=== PATIENT | male | born 1970 | race Caucasian/White ===

== ENCOUNTER 2018-04-25 02:15 | Inpatient (IN) | payer OTHER ==
[2018-04-25] MEDS ORDERED: SODIUM CHLORIDE 23.4% 77 MEQ, POTASSIUM CHLORIDE 30 MEQ in DEXTROSE 10% 1,000 ML IV ×3 (02:26→04:36)
[2018-04-25] MEDS ORDERED: SODIUM CHLORIDE 23.4% 77 MEQ in DEXTROSE 10% 1,000 ML IV ×2 (02:26→04:36)
[2018-04-25] MEDS ORDERED: SOD CHLORIDE 0.9% 1,000 ML IV ×2 (02:26→04:36)
[2018-04-25] MEDS ORDERED: SODIUM CHLORIDE 23.4% 77 MEQ, POTASSIUM CHLORIDE 40 MEQ in DEXTROSE 10% 1,000 ML IV ×2 (02:26→04:36)
[2018-04-25] MEDS ORDERED: POTASSIUM CHLORIDE 40 MEQ in SOD CHLORIDE 0.9% 1,000 ML IV ×2 (02:26→04:36)
[2018-04-25] MEDS ORDERED: DEXTROSE 50% 50 ML SYRINGE IV ×6 (02:30→10:30)
[2018-04-25] MEDS ORDERED: CA CHLORIDE 10% 10 ML SYRINGE (02:43)
[2018-04-25] MEDS: SODIUM CHLORIDE 0.9% 1L BAG IV* (02:56)
[2018-04-25] MEDS: CA CHLORIDE 10% 10 ML SYRINGE IV (02:56)
[2018-04-25] MEDS: LACTATED RINGER S IV (03:05)
[2018-04-25 03:21] LABS: LACTIC ACID 2.5 mmol/L (0.5-2.0)
[2018-04-25 03:30] LABS: MODE ROOM AIR; MetHgb Venous 0.3 %; Sample Type Blood venous; Site VENOUS LINE; Venous COHb 0.3 %; Venous Fraction OxyHgb 86.5 %; Venous Total Hemglobin 10.5 g/dl
[2018-04-25] MEDS: VANCOMYCIN 1 GM (PMX) 250 ML IVPB (03:31)
[2018-04-25] MEDS: CEFEPIME 2GM/50 ML (PMX) 50 ML IVPB (03:31)
[2018-04-25 03:52] LABS: ADD MAN DIFF? NO
[2018-04-25 04:00] LABS: ALANINE AMINOTRANSFERASE 97 IU/L (13-69); ALBUMIN 3.2 g/dl (3.3-4.9); ALBUMIN/GLOBULIN RATIO 1.23; ALKALINE PHOSPHATASE 290 IU/L (42-121); ANION GAP 15 (8-16); ASPARTATE AMINO TRANSFERASE 169 IU/L (15-46); BLOOD UREA NITROGEN 53 mg/dl (7-20); CALCIUM 8.6 mg/dl (8.4-10.2); CARBON DIOXIDE 18 mmol/L (21-31); CHLORIDE 97 mmol/L (97-110); CREATININE 3.12 mg/dl (0.61-1.24); POTASSIUM 5.3 mmol/L (3.5-5.1); SODIUM 125 mmol/L (135-144); TOTAL PROTEIN 5.8 g/dl (6.1-8.1)
[2018-04-25 04:07] LABS: GLUCOSE 699 mg/dl (70-220)
[2018-04-25] MEDS ORDERED: POTASSIUM CHLORIDE 30 MEQ in SOD CHLORIDE 0.9% 1,000 ML IV ×2 (04:07→04:36)
[2018-04-25 04:24] LABS: BASOPHILS % 0.3 % (0.0-2.0); EOSINOPHILS % 0.2 % (0.0-7.0); HEMATOCRIT 34.8 % (42.0-52.0); HEMOGLOBIN 10.9 g/dl (14.0-18.0); LYMPHOCYTES # 1.1 10^3/ul (0.8-2.9); LYMPHOCYTES % 11.1 % (15.0-51.0); MEAN CORPUSCULAR HEMOGLOBIN 28.6 pg (29.0-33.0); MEAN CORPUSCULAR HGB CONC 31.3 g/dl (32.0-37.0); MEAN CORPUSCULAR VOLUME 91.3 fl (82.0-101.0); MEAN PLATELET VOLUME 11.4 fl (7.4-10.4); MONOCYTE # 0.8 10^3/ul (0.3-0.9); MONOCYTES % 8.6 % (0.0-11.0); NEUTROPHIL # 7.5 10^3/ul (1.6-7.5); NEUTROPHILS % 78.7 % (39.0-77.0); PLATELET COUNT 226 10^3/UL (140-415); RED BLOOD COUNT 3.81 10^6/ul (4.70-6.10); RED CELL DISTRIBUTION WIDTH 13.6 % (11.5-14.5)
[2018-04-25 04:24] LABS: WHITE BLOOD COUNT 9.5 10^3/ul (4.8-10.8)
[2018-04-25] MEDS ORDERED: INSULIN REGULAR, HUMAN 100 UNIT in SOD CHLORIDE 0.9% 100 ML IV ×2 (04:30→05:00)
[2018-04-25] MEDS: INSULIN REGULAR, HUMAN 100 UNIT in SOD CHLORIDE 0.9% 100 ML IV (04:40)
[2018-04-25] MEDS: POTASSIUM CHLORIDE 30 MEQ in SOD CHLORIDE 0.9% 1,000 ML IV (04:42)
[2018-04-25 04:53] LABS: LACTIC ACID 1.5 mmol/L (0.5-2.0)
[2018-04-25 04:53] LABS: ANION GAP 11 (8-16); BLOOD UREA NITROGEN 51 mg/dl (7-20); CARBON DIOXIDE 17 mmol/L (21-31); CHLORIDE 104 mmol/L (97-110); CREATININE 2.72 mg/dl (0.61-1.24); MAGNESIUM 2.2 mg/dl (1.7-2.5); PHOSPHORUS 4.1 mg/dl (2.5-4.9); POTASSIUM 5.2 mmol/L (3.5-5.1); SODIUM 127 mmol/L (135-144)
[2018-04-25 04:59] LABS: GLUCOSE 575 mg/dl (70-220)
[2018-04-25] MEDS: INSULIN HUMAN REGULAR 100 UNIT in SOD CHLORIDE 0.9% 99 ML IV (05:00)
[2018-04-25] MEDS ORDERED: ACCU-CHEK XX (05:00)
[2018-04-25] MEDS ORDERED: ACETAMINOPHEN 325 MG TAB PO (05:00)
[2018-04-25] MEDS: ONDANSETRON 4 MG INJ IV ×4 (05:21→23:34)
[2018-04-25] MEDS: ACCU-CHEK XX ×4 (06:00→09:30)
[2018-04-25] MEDS: SOD CHLORIDE 0.9% 1,000 ML IV ×3 (06:15→22:29)
[2018-04-25] MEDS ORDERED: ATROPINE 1 MG/10 ML SYRINGE (07:00)
[2018-04-25] MEDS: CEFTRIAXONE 1 GM/50 ML (PMX) 50 ML IVPB (08:04)
[2018-04-25] MEDS: DEXTROSE 50% 50 ML SYRINGE IV ×2 (09:08→09:47)
[2018-04-25] MEDS ORDERED: GLUCAGON 1 MG INJ IM (10:30)
[2018-04-25] MEDS ORDERED: GLUCOSE GEL 15 GRAM TUBE PO ×2 (10:30)
[2018-04-25] MEDS ORDERED: GLUCOSE GEL 15 GRAM TUBE BUCCAL (10:30)
[2018-04-25] MEDS: INSULIN ASPART [NOVOLOG] 3 ML PEN SC ×4 (11:30→20:51)
[2018-04-25] MEDS ORDERED: INSULIN ASPART [NOVOLOG] 3 ML PEN SC ×2 (11:30→17:35)
[2018-04-25 11:55] LABS: ADD MAN DIFF? NO; HAAIG REFLEX REFLEX FILED
[2018-04-25 11:58] LABS: BASOPHILS % 0.2 % (0.0-2.0); EOSINOPHILS # 0.1 10^3/ul (0.0-0.5); EOSINOPHILS % 1.2 % (0.0-7.0); HEMATOCRIT 33.4 % (42.0-52.0); HEMOGLOBIN 10.9 g/dl (14.0-18.0); LYMPHOCYTES # 1.5 10^3/ul (0.8-2.9); LYMPHOCYTES % 16.2 % (15.0-51.0); MEAN CORPUSCULAR HEMOGLOBIN 29.2 pg (29.0-33.0); MEAN CORPUSCULAR HGB CONC 32.6 g/dl (32.0-37.0); MEAN CORPUSCULAR VOLUME 89.5 fl (82.0-101.0); MEAN PLATELET VOLUME 10.4 fl (7.4-10.4); MONOCYTE # 0.9 10^3/ul (0.3-0.9); MONOCYTES % 9.3 % (0.0-11.0); NEUTROPHIL # 6.7 10^3/ul (1.6-7.5); NEUTROPHILS % 72.5 % (39.0-77.0); PLATELET COUNT 214 10^3/UL (140-415); RED BLOOD COUNT 3.73 10^6/ul (4.70-6.10); RED CELL DISTRIBUTION WIDTH 13.2 % (11.5-14.5)
[2018-04-25 11:58] LABS: WHITE BLOOD COUNT 9.3 10^3/ul (4.8-10.8)
[2018-04-25] MEDS: PANTOPRAZOLE 40 MG INJ IV ×2 (12:14→20:49)
[2018-04-25] MEDS: METOCLOPRAMIDE 10 MG INJ IV ×3 (12:14→23:31)
[2018-04-25 12:17] LABS: ANION GAP 13 (8-16); BLOOD UREA NITROGEN 47 mg/dl (7-20); CARBON DIOXIDE 18 mmol/L (21-31); CHLORIDE 112 mmol/L (97-110); CREATININE 2.25 mg/dl (0.61-1.24); GLUCOSE 79 mg/dl (70-220); MAGNESIUM 2.1 mg/dl (1.7-2.5); PHOSPHORUS 3.5 mg/dl (2.5-4.9); POTASSIUM 4.5 mmol/L (3.5-5.1); SODIUM 138 mmol/L (135-144)
[2018-04-25 12:18] LABS: LACTIC ACID 1.4 mmol/L (0.5-2.0)
[2018-04-25 13:21] LABS: HEPATITIS B SURFACE ANTIGEN NEGATIVE (NEGATIVE)
[2018-04-25 13:39] LABS: HEPATITIS B CORE ANTIBODY NEGATIVE (NEGATIVE); HEPATITIS C VIRAL ANTIBODY NEGATIVE (NEGATIVE)
[2018-04-25] MEDS ORDERED: ONDANSETRON 4 MG INJ IV (14:30)
[2018-04-25] MEDS: METHYLPREDNISOLONE 40 MG INJ IV (15:12)
[2018-04-25] MEDS: ENOXAPARIN 30 MG/0.3 ML SYG SC (15:12)
[2018-04-25] MEDS: hydrALAzine 20 MG INJ IV ×2 (18:42→23:34)
[2018-04-25 18:55] LABS: ADD UMIC NO; UR ASCORBIC ACID NEGATIVE (NEGATIVE); UR BILIRUBIN (Dip) NEGATIVE (NEGATIVE); UR BLOOD (Dip) NEGATIVE (NEGATIVE); UR CLARITY CLEAR (CLEAR); UR COLOR YELLOW (YELLOW); UR GLUCOSE (Dip) 3+ mg/dL (NEGATIVE); UR KETONES (Dip) NEGATIVE (NEGATIVE); UR LEUKOCYTE ESTERASE (Dip) NEGATIVE Leu/ul (NEGATIVE); UR NITRITE (Dip) NEGATIVE (NEGATIVE); UR TOTAL PROTEIN (Dip) NEGATIVE (NEGATIVE); UR UROBILINOGEN (Dip) NEGATIVE (NEGATIVE)
[2018-04-25] MEDS: PROMETHAZINE 25 MG SUPP PR (19:05)
[2018-04-25] MEDS: ATORVASTATIN 10 MG TAB PO (20:49)
[2018-04-25] MEDS: MYCOPHENOLATE 250 MG CAP PO (20:49)
[2018-04-25] MEDS: INSULIN GLARGINE [LANTus] (100 UNITS/ML) SYG SC (20:50)
[2018-04-25] MEDS ORDERED: TACROLIMUS 1 MG CAP PO (21:00)
[2018-04-25 21:13] LABS: CHOL/HDL RATIO 2.7 RATIO; HDL CHOLESTEROL 32 mg/dl (27-67); LDL CHOLESTEROL,CALCULATED 34 mg/dl
[2018-04-25 21:15] LABS: CHOLESTEROL 87 mg/dl (100-200)
[2018-04-25 21:15] LABS: TRIGLYCERIDES 103 mg/dl (0-149)
[2018-04-25] MEDS: NIFEdipine (XL) 30 MG TAB PO (21:57)
[2018-04-25] MEDS: TACROLIMUS 0.5 MG CAP PO (21:59)
[2018-04-26] MEDS: ACETAMINOPHEN 325 MG TAB PO (00:30)
[2018-04-26] MEDS: PIPER-TAZO 2.25 GM (PMX) 50 ML IVPB ×4 (01:55→22:26)
[2018-04-26 02:43] LABS: ALANINE AMINOTRANSFERASE 74 IU/L (13-69); ALBUMIN 2.9 g/dl (3.3-4.9); ALBUMIN/GLOBULIN RATIO 1.16; ALKALINE PHOSPHATASE 101 IU/L (42-121); ANION GAP 15 (8-16); ASPARTATE AMINO TRANSFERASE 45 IU/L (15-46); BILIRUBIN,INDIRECT 0.1 mg/dl (0-1.1); BILIRUBIN,TOTAL 0.1 mg/dl (0.2-1.3); BLOOD UREA NITROGEN 38 mg/dl (7-20); CALCIUM 8.6 mg/dl (8.4-10.2); CARBON DIOXIDE 18 mmol/L (21-31); CHLORIDE 112 mmol/L (97-110); CREATININE 1.83 mg/dl (0.61-1.24); GLUCOSE 259 mg/dl (70-220); POTASSIUM 5.3 mmol/L (3.5-5.1); SODIUM 140 mmol/L (135-144); TOTAL PROTEIN 5.4 g/dl (6.1-8.1)
[2018-04-26 02:58] LABS: PHOSPHORUS 3.3 mg/dl (2.5-4.9)
[2018-04-26 02:58] LABS: MAGNESIUM 1.8 mg/dl (1.7-2.5)
[2018-04-26] MEDS ORDERED: VANCOMYCIN IV PER PHARMACY XX (03:00)
[2018-04-26] MEDS: PROMETHAZINE 25 MG SUPP PR ×2 (03:17→11:11)
[2018-04-26] MEDS: INSULIN ASPART [NOVOLOG] 3 ML PEN SC ×6 (03:27→20:03)
[2018-04-26] MEDS: VANCOMYCIN 1.5 GM in SOD CHLORIDE 0.9% 250 ML IVPB (04:02)
[2018-04-26] MEDS ORDERED: PANTOPRAZOLE 40 MG INJ IV (06:00)
[2018-04-26] MEDS: SOD CHLORIDE 0.9% 1,000 ML IV ×3 (06:17→21:59)
[2018-04-26] MEDS: LEVOTHYROXINE 150 MCG TAB PO (06:17)
[2018-04-26] MEDS: METOCLOPRAMIDE 10 MG INJ IV ×4 (06:17→23:15)
[2018-04-26] MEDS: PANTOPRAZOLE 40 MG INJ IV ×2 (06:20→17:23)
[2018-04-26] MEDS: ASPIRIN 81 MG TAB PO (08:34)
[2018-04-26] MEDS: predniSONE 5 MG TAB PO (08:34)
[2018-04-26] MEDS: MYCOPHENOLATE 250 MG CAP PO ×2 (08:34→20:04)
[2018-04-26] MEDS: NPH, HUMAN INSULIN ISOPHANE 3ML VIAL SC (08:36)
[2018-04-26] MEDS: LISINOPRIL 10 MG TAB PO (08:37)
[2018-04-26] MEDS: TACROLIMUS 1 MG CAP PO (08:37)
[2018-04-26] MEDS: NIFEdipine (XL) 30 MG TAB PO (08:37)
[2018-04-26] MEDS: ENOXAPARIN 30 MG/0.3 ML SYG SC (08:41)
[2018-04-26 17:59] LABS: SODIUM,URINE RANDOM 121 mmol/L (30-90)
[2018-04-26] MEDS: TACROLIMUS 0.5 MG CAP PO (20:04)
[2018-04-26] MEDS: ATORVASTATIN 10 MG TAB PO (20:04)
[2018-04-26] MEDS: INSULIN GLARGINE [LANTus] (100 UNITS/ML) SYG SC (20:06)
[2018-04-26] MEDS: ONDANSETRON 4 MG INJ IV (20:50)
[2018-04-27] MEDS: ONDANSETRON 4 MG INJ IV ×2 (00:47→20:39)
[2018-04-27] MEDS: ACETAMINOPHEN 325 MG TAB PO (00:49)
[2018-04-27] MEDS: hydrALAzine 20 MG INJ IV (02:23)
[2018-04-27] MEDS: VANCOMYCIN 1 GM 250 ML IVPB ×2 (04:18→16:26)
[2018-04-27 06:01] LABS: ADD MAN DIFF? NO
[2018-04-27] MEDS: LEVOTHYROXINE 150 MCG TAB PO (06:17)
[2018-04-27] MEDS: PANTOPRAZOLE 40 MG INJ IV ×2 (06:17→17:44)
[2018-04-27] MEDS: PIPER-TAZO 2.25 GM (PMX) 50 ML IVPB ×2 (06:17→14:34)
[2018-04-27] MEDS: METOCLOPRAMIDE 10 MG INJ IV ×4 (06:17→22:42)
[2018-04-27] MEDS: SOD CHLORIDE 0.9% 1,000 ML IV ×2 (06:17→21:43)
[2018-04-27 06:21] LABS: WHITE BLOOD COUNT 7.3 10^3/ul (4.8-10.8)
[2018-04-27 06:21] LABS: BASOPHILS % 0.1 % (0.0-2.0); EOSINOPHILS % 0.1 % (0.0-7.0); HEMATOCRIT 35.3 % (42.0-52.0); HEMOGLOBIN 11.4 g/dl (14.0-18.0); LYMPHOCYTES % 14.3 % (15.0-51.0); MEAN CORPUSCULAR HEMOGLOBIN 28.7 pg (29.0-33.0); MEAN CORPUSCULAR HGB CONC 32.3 g/dl (32.0-37.0); MEAN CORPUSCULAR VOLUME 88.9 fl (82.0-101.0); MEAN PLATELET VOLUME 10.2 fl (7.4-10.4); MONOCYTE # 0.5 10^3/ul (0.3-0.9); NEUTROPHIL # 5.6 10^3/ul (1.6-7.5); NEUTROPHILS % 77.8 % (39.0-77.0); PLATELET COUNT 229 10^3/UL (140-415); RED BLOOD COUNT 3.97 10^6/ul (4.70-6.10); RED CELL DISTRIBUTION WIDTH 13.8 % (11.5-14.5)
[2018-04-27 06:41] LABS: ALANINE AMINOTRANSFERASE 54 IU/L (13-69); ALBUMIN 2.7 g/dl (3.3-4.9); ALBUMIN/GLOBULIN RATIO 1.12; ALKALINE PHOSPHATASE 82 IU/L (42-121); ANION GAP 9 (8-16); ASPARTATE AMINO TRANSFERASE 23 IU/L (15-46); BILIRUBIN,INDIRECT 0.4 mg/dl (0-1.1); BILIRUBIN,TOTAL 0.4 mg/dl (0.2-1.3); BLOOD UREA NITROGEN 19 mg/dl (7-20); CALCIUM 8.7 mg/dl (8.4-10.2); CARBON DIOXIDE 21 mmol/L (21-31); CHLORIDE 113 mmol/L (97-110); GLUCOSE 73 mg/dl (70-220); POTASSIUM 4.3 mmol/L (3.5-5.1); SODIUM 139 mmol/L (135-144); TOTAL PROTEIN 5.1 g/dl (6.1-8.1)
[2018-04-27 07:08] LABS: MAGNESIUM 1.7 mg/dl (1.7-2.5)
[2018-04-27 07:08] LABS: PHOSPHORUS 2.3 mg/dl (2.5-4.9)
[2018-04-27] MEDS: INSULIN ASPART [NOVOLOG] 3 ML PEN SC ×8 (08:00→20:25)
[2018-04-27] MEDS: ASPIRIN 81 MG TAB PO (08:35)
[2018-04-27] MEDS: TACROLIMUS 1 MG CAP PO (08:36)
[2018-04-27] MEDS: NIFEdipine (XL) 30 MG TAB PO (08:37)
[2018-04-27] MEDS: LISINOPRIL 10 MG TAB PO (08:37)
[2018-04-27] MEDS: predniSONE 5 MG TAB PO (08:37)
[2018-04-27] MEDS: MYCOPHENOLATE 250 MG CAP PO ×2 (08:41→20:16)
[2018-04-27] MEDS: ENOXAPARIN 30 MG/0.3 ML SYG SC (08:44)
[2018-04-27] MEDS: DEXTROSE 50% 50 ML SYRINGE IV (08:58)
[2018-04-27] MEDS: NPH, HUMAN INSULIN ISOPHANE 3ML VIAL SC (09:47)
[2018-04-27 17:21] LABS: C-PEPTIDE 0.12 ng/mL (0.80-3.85)
[2018-04-27] MEDS ORDERED: PIPER-TAZO 3.375 GM IV (PMX) 100 ML IVPB (18:00)
[2018-04-27] MEDS: TACROLIMUS 0.5 MG CAP PO (20:16)
[2018-04-27] MEDS: ATORVASTATIN 10 MG TAB PO (20:16)
[2018-04-27] MEDS: INSULIN GLARGINE [LANTus] (100 UNITS/ML) SYG SC (20:24)
[2018-04-28] MEDS: hydrALAzine 20 MG INJ IV (01:39)
[2018-04-28] MEDS: DEXTROSE 50% 50 ML SYRINGE IV (01:51)
[2018-04-28] MEDS: ONDANSETRON 4 MG INJ IV (02:32)
[2018-04-28] MEDS: SOD CHLORIDE 0.9% 1,000 ML IV ×2 (02:40→21:43)
[2018-04-28] MEDS: PANTOPRAZOLE 40 MG INJ IV ×2 (05:27→17:32)
[2018-04-28] MEDS: METOCLOPRAMIDE 10 MG INJ IV ×4 (05:27→22:35)
[2018-04-28] MEDS: LEVOTHYROXINE 150 MCG TAB PO (06:05)
[2018-04-28] MEDS: ERYTHROMYCIN BASE (EC) 250 MG TAB PO ×3 (06:05→17:25)
[2018-04-28 06:48] LABS: ADD MAN DIFF? NO
[2018-04-28 07:00] LABS: WHITE BLOOD COUNT 6.6 10^3/ul (4.8-10.8)
[2018-04-28 07:00] LABS: BASOPHILS % 0.2 % (0.0-2.0); EOSINOPHILS # 0.1 10^3/ul (0.0-0.5); EOSINOPHILS % 0.8 % (0.0-7.0); HEMATOCRIT 37.8 % (42.0-52.0); HEMOGLOBIN 12.1 g/dl (14.0-18.0); LYMPHOCYTES # 1.3 10^3/ul (0.8-2.9); LYMPHOCYTES % 19.8 % (15.0-51.0); MEAN CORPUSCULAR HEMOGLOBIN 28.6 pg (29.0-33.0); MEAN CORPUSCULAR VOLUME 89.4 fl (82.0-101.0); MEAN PLATELET VOLUME 10.2 fl (7.4-10.4); MONOCYTE # 0.8 10^3/ul (0.3-0.9); MONOCYTES % 12.2 % (0.0-11.0); NEUTROPHIL # 4.4 10^3/ul (1.6-7.5); NEUTROPHILS % 66.5 % (39.0-77.0); PLATELET COUNT 213 10^3/UL (140-415); RED BLOOD COUNT 4.23 10^6/ul (4.70-6.10); RED CELL DISTRIBUTION WIDTH 13.2 % (11.5-14.5)
[2018-04-28 07:20] LABS: ANION GAP 10 (8-16); BLOOD UREA NITROGEN 10 mg/dl (7-20); CALCIUM 8.6 mg/dl (8.4-10.2); CARBON DIOXIDE 26 mmol/L (21-31); CHLORIDE 108 mmol/L (97-110); GLUCOSE 104 mg/dl (70-220); MAGNESIUM 1.5 mg/dl (1.7-2.5); PHOSPHORUS 2.5 mg/dl (2.5-4.9); POTASSIUM 3.7 mmol/L (3.5-5.1); SODIUM 140 mmol/L (135-144)
[2018-04-28] MEDS: INSULIN ASPART [NOVOLOG] 3 ML PEN SC ×7 (08:00→21:00)
[2018-04-28] MEDS: predniSONE 5 MG TAB PO (08:21)
[2018-04-28] MEDS: MYCOPHENOLATE 250 MG CAP PO ×2 (08:21→21:31)
[2018-04-28] MEDS: ASPIRIN 81 MG TAB PO (08:21)
[2018-04-28] MEDS: NIFEdipine (XL) 30 MG TAB PO (08:21)
[2018-04-28] MEDS: TACROLIMUS 1 MG CAP PO (08:21)
[2018-04-28] MEDS: LISINOPRIL 10 MG TAB PO (08:21)
[2018-04-28] MEDS: ENOXAPARIN 30 MG/0.3 ML SYG SC (08:35)
[2018-04-28] MEDS: NPH, HUMAN INSULIN ISOPHANE 3ML VIAL SC (08:35)
[2018-04-28] MEDS: MAGNESIUM SULFATE 3 GM in DEXTROSE 5% 100 ML IVPB (10:06)
[2018-04-28] MEDS: MAGNESIUM SULFATE 1 GM/D5W 100 ML IVPB (18:37)
[2018-04-28] MEDS ORDERED: INSULIN GLARGINE [LANTus] (100 UNITS/ML) SYG SC (20:00)
[2018-04-28] MEDS: TACROLIMUS 0.5 MG CAP PO (21:31)
[2018-04-28] MEDS: ATORVASTATIN 10 MG TAB PO (21:31)
[2018-04-28] MEDS: INSULIN GLARGINE [LANTus] (100 UNITS/ML) SYG SC (21:36)
[2018-04-29] MEDS: PANTOPRAZOLE 40 MG INJ IV ×2 (06:22→17:47)
[2018-04-29] MEDS: METOCLOPRAMIDE 10 MG INJ IV ×3 (06:22→17:30)
[2018-04-29] MEDS: ERYTHROMYCIN BASE (EC) 250 MG TAB PO ×3 (06:22→17:30)
[2018-04-29] MEDS: LEVOTHYROXINE 150 MCG TAB PO (06:22)
[2018-04-29 07:40] LABS: ADD MAN DIFF? NO
[2018-04-29 07:43] LABS: WHITE BLOOD COUNT 5.6 10^3/ul (4.8-10.8)
[2018-04-29 07:43] LABS: BASOPHILS % 0.4 % (0.0-2.0); EOSINOPHILS # 0.2 10^3/ul (0.0-0.5); HEMATOCRIT 38.3 % (42.0-52.0); HEMOGLOBIN 12.3 g/dl (14.0-18.0); LYMPHOCYTES # 1.8 10^3/ul (0.8-2.9); LYMPHOCYTES % 31.3 % (15.0-51.0); MEAN CORPUSCULAR HEMOGLOBIN 28.8 pg (29.0-33.0); MEAN CORPUSCULAR HGB CONC 32.1 g/dl (32.0-37.0); MEAN CORPUSCULAR VOLUME 89.7 fl (82.0-101.0); MONOCYTE # 0.7 10^3/ul (0.3-0.9); MONOCYTES % 11.8 % (0.0-11.0); NEUTROPHILS % 53.1 % (39.0-77.0); PLATELET COUNT 224 10^3/UL (140-415); RED BLOOD COUNT 4.27 10^6/ul (4.70-6.10); RED CELL DISTRIBUTION WIDTH 13.4 % (11.5-14.5)
[2018-04-29 08:10] LABS: ANION GAP 7 (8-16); BLOOD UREA NITROGEN 10 mg/dl (7-20); CALCIUM 8.4 mg/dl (8.4-10.2); CARBON DIOXIDE 28 mmol/L (21-31); CHLORIDE 110 mmol/L (97-110); CREATININE 1.03 mg/dl (0.61-1.24); GLUCOSE 82 mg/dl (70-220); POTASSIUM 3.6 mmol/L (3.5-5.1); SODIUM 141 mmol/L (135-144)
[2018-04-29 08:13] LABS: C-REACTIVE PROTEIN < 0.5 mg/dl (0.0-0.9)
[2018-04-29] MEDS: ASPIRIN 81 MG TAB PO (08:43)
[2018-04-29] MEDS: predniSONE 5 MG TAB PO (08:43)
[2018-04-29] MEDS: TACROLIMUS 1 MG CAP PO (08:43)
[2018-04-29] MEDS: NIFEdipine (XL) 30 MG TAB PO (08:44)
[2018-04-29] MEDS: LISINOPRIL 10 MG TAB PO (08:44)
[2018-04-29] MEDS: ENOXAPARIN 30 MG/0.3 ML SYG SC (08:47)
[2018-04-29] MEDS: NPH, HUMAN INSULIN ISOPHANE 3ML VIAL SC (08:49)
[2018-04-29] MEDS: INSULIN ASPART [NOVOLOG] 3 ML PEN SC ×6 (08:49→17:30)
[2018-04-29] MEDS: MYCOPHENOLATE 250 MG CAP PO (08:56)
[2018-04-30 11:11] LABS: CYTOMEGALOVIRUS ANTIBODY (IGG) >10.00 U/mL; CYTOMEGALOVIRUS ANTIBODY (IGM) <30.00 AU/mL
[2018-04-30 18:46] LABS: EBV VIRAL CAPSID AG AB (IGG) >750.00 U/mL; EBV VIRAL CAPSID AG AB (IGM) <36.00 U/mL
== END 2018-04-29 18:15 | disposition home or self-care (01) | DRG 871 ==
LOC: E/R 02:15 → ICU 04:09 → 2NE 04-26 18:25
PROVIDERS: Internal Medicine
DX: A41.9 Sepsis, unspecified organism (principal); E10.10 Type 1 diabetes mellitus with ketoacidosis without coma; E87.1 Hypo-osmolality and hyponatremia; Z94.0 Kidney transplant status; N17.9 Acute kidney failure, unspecified; K81.0 Acute cholecystitis; E10.22 Type 1 diabetes mellitus with diabetic chronic kidney disease; E10.43 Type 1 diabetes mellitus with diabetic autonomic (poly)neuropathy; K31.84 Gastroparesis; E83.42 Hypomagnesemia; E87.5 Hyperkalemia; R00.1 Bradycardia, unspecified; D64.9 Anemia, unspecified; E78.5 Hyperlipidemia, unspecified; I12.9 Hypertensive chronic kidney disease with stage 1 through stage 4 chronic kidney disease, or unspecified chronic kidney disease; N18.9 Chronic kidney disease, unspecified; K21.9 Gastro-esophageal reflux disease without esophagitis; E03.9 Hypothyroidism, unspecified; F32.9 Major depressive disorder, single episode, unspecified; D63.1 Anemia in chronic kidney disease; R65.20 Severe sepsis without septic shock; Z79.4 Long term (current) use of insulin; Z79.82 Long term (current) use of aspirin
CPT/HCPCS: 36415; 71045; 76705; 76856; 78226; 78264; 80048; 80053; 80061; 81003; 82803; 82962; 83036; 83605; 83735; 84100; 84300; 84681; 85025; 85651; 86140; 86644; 86664; 86704; 86709; 86803; 87040; 87081; 87086; 87340; 93005; 93971; 96365; 96375; 97161; 99291-25